=== PATIENT | male | born 1940 | race Caucasian/White ===

== ENCOUNTER → 2018-04-18 | Outpatient (CLI) | payer MEDICARE, BC ==
[2018-04-18 12:17] LABS: ERYTHROCYTE SEDIMENTATION RATE 1 mm/hr (0-20)
[2018-04-18 12:24] LABS: RHEUMATOID FACTOR QUANT < 10.0 IU/ML (<15.0)
[2018-04-20 00:11] LABS: ANTI DOUBLE STRAND-DNA AB <1 IU/mL (0-9); ANTINUCLEAR ANTIBODIES DIRECT Positive (Negative); Lyme Disease IgG/IgM Antibodie <0.91 ISR (0.00-0.90); Lyme Disease IgM Ab Quantitati <0.80 index (0.00-0.79); RNP ANTIBODIES <0.2 AI (0.0-0.9); SJOGREN'S ANTI SS-A <0.2 AI (0.0-0.9); SJOGREN'S ANTI SS-B <0.2 AI (0.0-0.9); SMITH ANTIBODIES <0.2 AI (0.0-0.9)
== END ==
LOC: M LAB 11:23
DX: M79.641 Pain in right hand (principal); M79.642 Pain in left hand
CPT/HCPCS: 36415

== ENCOUNTER 2018-12-07 13:09 | Emergency (ER) | payer MEDICARE, BC ==
[~2018-12-07] VITALS: Ht 172.7 cm; Wt 77.7 kg
[~2018-12-07 13:09] MED LIST: ASPI81TA45 PO; BENA25CA2 PO; Carbidopa/Levodopa PO; FLOM0.4C39 PO; GABA600T4 PO; GLUC500T PO; LISI-542 PO; MEGE40TA18 PO; METF500T13 PO; OMEP20CA3 PO; SENN-22 PO; SUCR1SS PO; ULTR50TA8 PO; VENL-65 PO; VENL150T14 PO; Venlafaxine Hcl PO; ZOFR4TAB16 PO
[2018-12-07] MEDS ORDERED: ASPIRIN 81 MG CHEW TABLET PO ONE (13:30)
[2018-12-07] MEDS ORDERED: NITROGLYCERIN 0.4 MG SUBL TABLET SL PRN (13:30)
[2018-12-07 13:32] LABS: BASO % 0.4 % (0.0-1.0); EOS # 0.1 10^3/uL (0.0-0.50); EOS % 0.6 % (0.0-3.0); HEMATOCRIT 40.8 % (42.0-52.0); HEMOGLOBIN 12.8 g/dl (13.5-17.5); LYMPH # 0.7 10^3/uL (1.5-4.5); LYMPH % 9.3 % (24.0-44.0); MEAN CORPUSCULAR HEMOGLOBIN 27.7 pg (27.0-33.0); MEAN CORPUSCULAR HGB CONC 31.4 g/dl (32.0-36.5); MEAN CORPUSCULAR VOLUME 88.3 fl (80.0-96.0); MONO # 0.5 10^3/uL (0.0-0.8); MONO % 6.1 % (0.0-5.0); NEUTROPHILS # 6.4 10^3/uL (1.8-7.7); NEUTROPHILS % 83.2 % (36.0-66.0); PLATELET COUNT, AUTOMATED 287 10^3/uL (150-450); RED BLOOD COUNT 4.62 10^6/uL (4.30-6.10); WHITE BLOOD COUNT 7.7 10^3/uL (4.0-10.0)
[2018-12-07 13:40] VITALS: BP 134/70
[2018-12-07 13:45] LABS: INR 1.07
[2018-12-07 13:46] LABS: PARTIAL THROMBOPLASTIN TIME 34.2 SECONDS (25.4-37.6)
[2018-12-07 14:14] LABS: ALBUMIN 3.1 GM/DL (3.2-5.2); ALT/SGPT 9 U/L (12-78); BILIRUBIN,DIRECT < 0.1 MG/DL (0.0-0.2); BILIRUBIN,TOTAL 0.4 MG/DL (0.2-1.0); BLOOD UREA NITROGEN 20 MG/DL (7-18); CARBON DIOXIDE LEVEL 28 MEQ/L (21-32); CHLORIDE LEVEL 100 MEQ/L (98-107); CK-MB VALUE MASS < 1.0 NG/ML (<3.6); CPK CREATINE PHOSPHOKINASE 76 U/L (39-308); FREE T4 0.87 NG/DL (0.76-1.46); GLOMERULAR FILTRATION RATE > 60.0 (>42); GLUCOSE, FASTING 162 MG/DL (70-100); LIPASE 53 U/L (73-393); MB/CK RELATIVE INDEX 1.32 (< OR =4); POTASSIUM SERUM 4.4 MEQ/L (3.5-5.1); SODIUM LEVEL 135 MEQ/L (136-145); TOTAL PROTEIN 7.4 GM/DL (6.4-8.2); TROPONIN I < 0.02 NG/ML (< 0.10)
--- NOTE | 2018-12-07 14:38 | REP ---
CHEST X-RAY: Two views. HISTORY: Chest pain. COMPARISON CHEST X-RAY: July 24, 2015. FINDINGS: EKG monitoring electrodes overlie the chest. Lungs are well inflated and clear. The aorta is tortuous as before. Heart size is borderline. There are clips in the right upper quadrant. The pleural angles are sharp. No infiltrate is seen. There is a hiatal hernia. IMPRESSION: Borderline heart size. Thoracic aorta is tortuous and somewhat ectatic. There is evidence of a hiatal hernia behind the heart. Otherwise no acute disease. Electronically Signed by Deacon Farnsworth MD 12/07/2018 08:05 P
[2018-12-07] MEDS ORDERED: ISOVUE-370 76% 100ML VIAL (Q9967) As Ordered ONE (14:46)
[2018-12-07] MEDS ORDERED: MORPHINE 2 MG/ML 1ML SYRINGE (J2270) IV ONE (15:15)
--- NOTE | 2018-12-07 15:37 | REP ---
CT of the chest with IV contrast, CT pulmonary angiography: There are no comparison CT studies of the chest. There are no emboli in the pulmonary trunk or central pulmonary arteries. There are no pulmonary lobe or segment branch emboli. There are no infiltrates. No pleural effusions. There are no masses or nodules. There are subpleural fibrotic changes in the right lower lobe and to a lesser extent left lower lobe. The thoracic aorta is unremarkable. Cardiac size is upper normal. There is no pericardial effusion. There is a large hiatal hernia. The visualized upper abdomen there is a surgical clips in the gallbladder fossa and the cyst in the upper pole right kidney. Impression: There are no pulmonary emboli. There are no infiltrates, effusions, masses or nodules. There are fibrotic changes in the right base. There is a large hiatal hernia. Electronically Signed by Sky Valencia MD 12/07/2018 03:28 P
[2018-12-07] MEDS ORDERED: ROPI1TAB PO (15:39)
[2018-12-07] MEDS ORDERED: ACETAMINOPHEN TAB 650MG DOSE (2X325MG) PO ONE (18:30)
[2018-12-07 20:11] LABS: CK-MB VALUE MASS < 1.0 NG/ML (<3.6); CPK CREATINE PHOSPHOKINASE 48 U/L (39-308); MB/CK RELATIVE INDEX 2.08 (< OR =4); TROPONIN I < 0.02 NG/ML (< 0.10)
[2018-12-07 20:45] VITALS: BP 145/67
--- NOTE | 2018-12-07 21:59 | ECGEPIP ---
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
--- NOTE | 2018-12-07 22:03 | ECGEPIP ---
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
== END 2018-12-07 21:13 | disposition home or self-care (01) ==
LOC: M ED 13:09
DX: R07.89 Other chest pain (principal); R06.02 Shortness of breath; E11.9 Type 2 diabetes mellitus without complications; I10 Essential (primary) hypertension; K21.9 Gastro-esophageal reflux disease without esophagitis; G20 Parkinson's disease; F03.90 Unspecified dementia, unspecified severity, without behavioral disturbance, psychotic disturbance, mood disturbance, and anxiety; F33.9 Major depressive disorder, recurrent, unspecified; N40.0 Benign prostatic hyperplasia without lower urinary tract symptoms; Z79.899 Other long term (current) drug therapy; Z79.82 Long term (current) use of aspirin
CPT/HCPCS: 71046; 71275; 80048; 80076; 82550; 82553; 83690; 84439; 84443; 84484; 85025; 85610; 85730; 93005; 93041; 94760; 96374; 99285; J2270; Q9967

== ENCOUNTER → 2019-01-18 | Outpatient (CLI) | payer MEDICARE, BC ==
[~2019-01-18] MED LIST changes: +ROPI1TAB PO
[2019-01-23 00:07] LABS: ANTI DOUBLE STRAND-DNA AB <1 IU/mL (0-9); ANTINUCLEAR ANTIBODIES DIRECT Positive (Negative); RNP ANTIBODIES <0.2 AI (0.0-0.9); SJOGREN'S ANTI SS-A <0.2 AI (0.0-0.9); SJOGREN'S ANTI SS-B <0.2 AI (0.0-0.9); SMITH ANTIBODIES <0.2 AI (0.0-0.9)
== END ==
LOC: M LAB 11:30
PROVIDERS: ATTEND Physician Assistant Medical
DX: M25.541 Pain in joints of right hand (principal); M25.542 Pain in joints of left hand

== ENCOUNTER → 2022-09-14 | Outpatient (CLI) | payer MEDICARE, BC ==
[~2022-09-14] MED LIST changes: -LISI-542 PO; +LISI5TAB11 PO; +OMEP1CAP73 PO; -OMEP20CA3 PO; -ROPI1TAB PO; +ROPI1TAB3 PO
== END ==
LOC: M SLEEP 20:00
PROVIDERS: ATTEND Nurse Practitioner Adult Health
DX: G47.33 Obstructive sleep apnea (adult) (pediatric) (principal); G47.61 Periodic limb movement disorder